=== PATIENT | male | born 1955 | race Caucasian/White ===

== ENCOUNTER 2019-02-06 14:15 | Inpatient (IN) | payer OTHER ==
[2019-02-06 15:31] VITALS: BMI 21.6
--- NOTE | 2019-02-06 16:59 | HP ---
COWS - Scale Resting Pulse: 1= ID [id number] Sweatin=Flushed/Facial Moisture (pt states feels like he is in withdrawal and needs detox) Restless Observation: 3= Extraneous Movement Pupil Size: 0= Normal to Room Light Bone or Joint Aches: 2= Severe Diffuse Aches Runny Nose/ Eye Tearin= Runny Nose/Eyes GI Upset > 30mins: 3= Vomiting/Diarrhea Tremor Observation: 1= Tremor [place], Not Seen Yawning Observation: 0= None Anxiety or Irritability: 2=Irritable/Anxious Goose Flesh Skin: 0=Smooth Skin COWS Score: 16 CIWA Score - Admission Criteria [facility]ASAS Guidelines: Admission for Medically Managed Detox: Requires at least one of the followin. CIWA greater than 12 2. Seizures within the past 24 hours 3. Delirium tremens within the past 24 hours 4. Hallucinations within the past 24 hours 5. Acute intervention needed for co occurring medical disorder 6. Acute intervention needed for co occurring psychiatric disorder 7. Severe withdrawal that cannot be handled at a lower level of care (continued vomiting, continued diarrhea, abnormal vital signs) requiring intravenous medication and/or fluids 8. Admission [facility] Chief Complaint: heroin detox 64 yo with a long h/o of opioid use disorder since age 14, pt was hospitalized for 5 days (discharged today) with a diagnosis of respiratory arrest and small bowel obstruction. Pt states he was exposed to cats (to which he is allergic) and because he did not have his asthma pump he developed breathing problems. He had had also used heroin- 2 bags. He was in respiratory arrest when the paramedics found him- he was given 3 rounds of narcan and was taken to [facility] near [place], [place]. He left hospital this morning and came here for detox. Pt states he feels like he is still with withdrawal Sx-high COWs score. States he sniffed heroin prior to coming here. Pt was discharged with levaquin, prednisone, albuterol, spiriva, metoprolol. Utox pos for Bzo, opiates, MTD and porfirio DUR- neg for recent controlled substances Allergies/Adverse Reactions: Allergies Allergy/AdvReac Type Severity Reaction Status Date / Time cat Allergy Severe Itching Uncoded 02/06/19 15:08 Exam Limitations: No Limitations - Ebola screening Have you traveled outside of the country in the last 21 days: No (N) Have you had contact with anyone from an Ebola affected area: No Do you have a fever: No Patient History - Patient Medical History Hx Asthma: Yes Hx Gastrointestinal Disorders: Yes (multiple surgeries) - Patient Surgical History Hx Abdominal Surgery: Yes (esophageal rupture, hole in intestines, hernia) - PPD History PPD to be Administered?: Yes - Smoking Cessation Smoking history: Current every day smoker Have you smoked in the past 12 months: Yes Aproximately how many cigarettes per day: 20 Initiated information on smoking cessation: Yes 'Breaking Loose' booklet given: 02/06/19 - Substance & Tx. History Hx Alcohol Use: No Substance Use Type: Cocaine, Heroin Hx Substance Use Treatment: Yes - Substances abused Heroin Substance route: Inhalation Frequency: Daily Amount used: 5 bags Age of first use: 14 Date of last use: 02/06/19 Cocaine Substance route: Smoking Frequency: 3-6 times per week Amount used: $20 Age of first use: 22 Date of last use: 02/03/19 Family Disease History - Family Disease History Family History: Unremarkable Admission Physical Exam [facility] - Vital Signs Vital Signs: Vital Signs - 24 hr 02/06/19 15:07 Temperature 98.1 F Pulse Rate 69 Respiratory 18 Rate Blood Pressure 98/66 - Physical General Appearance: Yes: Cachetic, Thin, Irritable HEENTM: Yes: Other (thrush on hard palate) Respiratory: Yes: Within Normal Limits, Lungs Clear Neck: Yes: Within Normal Limits Cardiology: Yes: Within Normal Limits, S1, S2 Abdominal: Yes: Within Normal Limits, Surgical Scar Back: Yes: Within Normal Limits Musculoskeletal: Yes: Within Normal Limits, Muscle weakness Extremities: Yes: Other (thin arms and legs) Neurological: Yes: Within Normal Limits, Fully Oriented, Alert Integumentary: Yes: Within Normal Limits Lymphatic: Yes: Within Normal Limits - Diagnostic (1) Opioid use disorder Current Visit: Yes Status: Acute (2) H/O small bowel obstruction Current Visit: Yes Status: Acute (3) H/O drug overdose Current Visit: Yes Status: Acute (4) Thrush Current Visit: Yes Status: Acute (5) Cocaine use disorder Current Visit: Yes Status: Acute Inpatient Rehab Admission - Rehab Decision to Admit Inpatient rehab admission?: No
[2019-02-06] MEDS ORDERED: MAGNESIUM HYDROX 2400MG/30ML ORAL SUSPENSION 30 ML CUP PO PRN (17:12)
[2019-02-06] MEDS ORDERED: BISMUTH SUBSALICYLATE 524 MG/30 ML UD PO PRN (17:12)
[2019-02-06] MEDS ORDERED: clonazePAM 0.5 MG TABLET PO PRN (17:12)
[2019-02-06] MEDS ORDERED: ACETAMINOPHEN 325 MG TABLET (FP) PO PRN ×2 (17:12)
[2019-02-06] MEDS ORDERED: cloNIDine HCL 0.1 MG TABLET PO PRN (17:12)
[2019-02-06] MEDS ORDERED: IBUPROFEN 400 MG TABLET (FP) PO PRN (17:12)
[2019-02-06] MEDS ORDERED: MAGNESIUM CITRATE 300 ML BOTTLE PO PRN (17:12)
[2019-02-06] MEDS ORDERED: MELATONIN 5 MG TABLETS PO PRN (17:12)
[2019-02-06] MEDS ORDERED: hydrOXYzine PAMOATE 25 MG CAPSULE (FP) PO PRN (17:12)
[2019-02-06] MEDS ORDERED: METHOCARBAMOL 500 MG TABLET PO PRN (17:12)
[2019-02-06] MEDS ORDERED: MENTHOL/PHENOL 1 EACH UD MM PRN (17:12)
[2019-02-06] MEDS ORDERED: MAG HYDROX/AL HYDROX/SIMETH 30 ML UNIT-DOSE CUP PO PRN (17:12)
[2019-02-06] MEDS ORDERED: ALBUTEROL SO4 8 GM HFA INHALER IH PRN (17:26)
[2019-02-06] MEDS ORDERED: METHADONE HCL 10 MG TABLET (FOR DETOX USE ONLY) PO ONE ×2 (18:00→23:00)
[2019-02-06] MEDS ORDERED: predniSONE 20 MG TABLET (UD) PO ONE (18:00)
[2019-02-06] MEDS: TIOTROPIUM BROMIDE 2.5 MCG (SPIRIVA) RESPIMAT INHALER IH SCH (19:11)
[2019-02-06] MEDS ORDERED: THIAMINE HCL 100 MG TABLET (FP) PO SCH (22:00)
[2019-02-06] MEDS: CLOTRIMAZOLE 10 MG TROCHE (FP) PO SCH (22:01)
[2019-02-07] MEDS: CLOTRIMAZOLE 10 MG TROCHE (FP) PO SCH ×2 (05:25→10:03)
[2019-02-07 09:38] LABS: HEMATOCRIT 44.8 % (35.4-49); HEMOGLOBIN 14.8 GM/dL (11.7-16.9); MCH 28.8 pg (25.7-33.7); MCHC 33.1 g/dl (32.0-35.9); MEAN PLT VOLUME 7.6 fl (7.5-11.1); PLATELET COUNT 198 K/MM3 (134-434); RBC 5.15 M/mm3 (4.00-5.60); RDW 14.5 % (11.9-15.9); WHITE BLOOD COUNT 9.9 K/mm3 (4.0-10.0)
[2019-02-07 09:42] VITALS: BP 108/74; PULSE 70; TEMP 96.6
[2019-02-07 09:57] LABS: ALBUMIN 3.3 g/dl (3.4-5.0); BILIRUBIN,TOTAL 0.4 mg/dL (0.2-1); CALCIUM 9.1 mg/dL (8.5-10.1); CREATININE 1.1 mg/dL (0.55-1.3); POTASSIUM 4.1 mmol/L (3.5-5.1)
[2019-02-07] MEDS ORDERED: PRENATAL VITAMINS W/ FOLIC ACID TABLET (FP) PO SCH (10:00)
[2019-02-07] MEDS ORDERED: PANTOPRAZOLE 40 MG TABLET (FP) PO SCH (10:00)
[2019-02-07] MEDS ORDERED: METHADONE HCL 10 MG TABLET (FOR DETOX USE ONLY) PO ONE (10:00)
[2019-02-07] MEDS: TIOTROPIUM BROMIDE 2.5 MCG (SPIRIVA) RESPIMAT INHALER IH SCH (10:05)
--- NOTE | 2019-02-07 10:21 | PN ---
[facility] COWS - Scale Resting Pulse: 0= ID 80 or Below Sweatin= Chills/Flushing Restless Observation: 0= Sits Still Pupil Size: 1= Pupils >than Normal Bone or Joint Aches: 2= Severe Diffuse Aches Runny Nose/ Eye Tearin= Runny Nose/Eyes GI Upset > 30mins: 2= Nausea/Diarrhea Tremor Observation of Outstretched Hands: 2= Slight Tremor Visible Yawning Observation: 1= 1-2x During Session Anxiety or Irritability: 2=Irritable/Anxious Goose Flesh Skin: 0=Smooth Skin COWS Score: 13 [facility] Progress Note (SOAP) Subjective: chronic asthma recent hospitalized x "days" discharged with prednison Objective: 02/07/19 10:23 Vital Signs Temperature 96.6 F L 02/07/19 09:38 Pulse Rate 70 02/07/19 09:38 Respiratory Rate 18 02/07/19 09:38 Blood Pressure 108/74 02/07/19 09:38 O2 Sat by Pulse Oximetry (%) Laboratory Last Values WBC 9.9 K/mm3 (4.0-10.0) 02/07/19 07:00 RBC 5.15 M/mm3 (4.00-5.60) 02/07/19 07:00 Hgb 14.8 GM/dL (11.7-16.9) 02/07/19 07:00 Hct 44.8 % (35.4-49) 02/07/19 07:00 MCV 87.0 fl (80-96) 02/07/19 07:00 MCH 28.8 pg (25.7-33.7) 02/07/19 07:00 MCHC 33.1 g/dl (32.0-35.9) 02/07/19 07:00 RDW 14.5 % (11.9-15.9) 02/07/19 07:00 Plt Count 198 K/MM3 (134-434) 02/07/19 07:00 MPV 7.6 fl (7.5-11.1) 02/07/19 07:00 Sodium 132 mmol/L (136-145) L 02/07/19 07:00 Potassium 4.1 mmol/L (3.5-5.1) 02/07/19 07:00 Chloride 97 mmol/L (98-107) L 02/07/19 07:00 Carbon Dioxide 29 mmol/L (21-32) 02/07/19 07:00 Anion Gap 6 MMOL/L (8-16) L 02/07/19 07:00 BUN 31 mg/dL (7-18) H 02/07/19 07:00 Creatinine 1.1 mg/dL (0.55-1.3) 02/07/19 07:00 Est GFR (CKD-EPI)AfAm 82.37 02/07/19 07:00 Est GFR (CKD-EPI)NonAf 71.07 02/07/19 07:00 Random Glucose 73 mg/dL (74-106) L 02/07/19 07:00 Calcium 9.1 mg/dL (8.5-10.1) 02/07/19 07:00 Total Bilirubin 0.4 mg/dL (0.2-1) 02/07/19 07:00 AST 14 U/L (15-37) L 02/07/19 07:00 ALT 24 U/L (13-61) 02/07/19 07:00 Alkaline Phosphatase 65 U/L (45-117) 02/07/19 07:00 Total Protein 8.0 g/dl (6.4-8.2) 02/07/19 07:00 Albumin 3.3 g/dl (3.4-5.0) L 02/07/19 07:00 lab noted bun elevation repeat bun increase oral fluid 02/07/19 10:25 Assessment: 02/07/19 10:24 opiate withdrawal sx Plan: continue detox repeat bun oral hydration
[2019-02-07] MEDS ORDERED: MINERAL OIL/PETROLAT/WATER TOPICAL CREAM 113 GM JAR TP SCH (10:30)
--- NOTE | 2019-02-07 14:58 | DS ---
[facility] Detox Discharge Summary Admission Date: 02/06/19 Discharge Date: 02/07/19 - History Present History: Opioid Dependence Additional Comments: 64 YEARS OLD MALE ADMITTED ON 02/06/19 FOR OPIATE WITHDRAWAL STABILIZATION INSISTS TO LEAVE THE UNIT "SOME THINGS TO DO" PATIENT IS ALERT NO ACUTE DISTRESS DENIES SUICIDAL IDEATION Pertinent Past History: BRING IN MEDICATION LIST AND LAB REPORT TO [facility] APPOINTMENT PATIENT WAS IN THE HOSP[facility] FOR P[facility]UM[facility]IA DISCHARGED WITH PREDNISON PATIENT AGREES TO UTILIZE [facility] FOR CARDIAC AND PULMONARY ISSUES - Physical Exam Results Vital Signs: Vital Signs Temperature 96.6 F L 02/07/19 09:38 Pulse Rate 70 02/07/19 09:38 Respiratory Rate 18 02/07/19 09:38 Blood Pressure 108/74 02/07/19 09:38 O2 Sat by Pulse Oximetry (%) Pertinent Admission Physical Exam Findings: OPIATE WITHDRAWAL SX Laboratory Last Values WBC 9.9 K/mm3 (4.0-10.0) 02/07/19 07:00 RBC 5.15 M/mm3 (4.00-5.60) 02/07/19 07:00 Hgb 14.8 GM/dL (11.7-16.9) 02/07/19 07:00 Hct 44.8 % (35.4-49) 02/07/19 07:00 MCV 87.0 fl (80-96) 02/07/19 07:00 MCH 28.8 pg (25.7-33.7) 02/07/19 07:00 MCHC 33.1 g/dl (32.0-35.9) 02/07/19 07:00 RDW 14.5 % (11.9-15.9) 02/07/19 07:00 Plt Count 198 K/MM3 (134-434) 02/07/19 07:00 MPV 7.6 fl (7.5-11.1) 02/07/19 07:00 Sodium 132 mmol/L (136-145) L 02/07/19 07:00 Potassium 4.1 mmol/L (3.5-5.1) 02/07/19 07:00 Chloride 97 mmol/L (98-107) L 02/07/19 07:00 Carbon Dioxide 29 mmol/L (21-32) 02/07/19 07:00 Anion Gap 6 MMOL/L (8-16) L 02/07/19 07:00 BUN 31 mg/dL (7-18) H 02/07/19 07:00 Creatinine 1.1 mg/dL (0.55-1.3) 02/07/19 07:00 Est GFR (CKD-EPI)AfAm 82.37 02/07/19 07:00 Est GFR (CKD-EPI)NonAf 71.07 02/07/19 07:00 Random Glucose 73 mg/dL (74-106) L 02/07/19 07:00 Calcium 9.1 mg/dL (8.5-10.1) 02/07/19 07:00 Total Bilirubin 0.4 mg/dL (0.2-1) 02/07/19 07:00 AST 14 U/L (15-37) L 02/07/19 07:00 ALT 24 U/L (13-61) 02/07/19 07:00 Alkaline Phosphatase 65 U/L (45-117) 02/07/19 07:00 Total Protein 8.0 g/dl (6.4-8.2) 02/07/19 07:00 Albumin 3.3 g/dl (3.4-5.0) L 02/07/19 07:00 RPR Titer Nonreactive (NONREACTIVE) 02/07/19 07:00 LAB NOTED - Treatment Hospital Course: Detox Protocol Followed, Responded well Patient has Accepted a Rehab Referral to: [facility] - Medication Discharge Medications: Ambulatory Orders Albuterol Sulfate Inhaler - [Ventolin Hfa Inhaler -] 2 inh PO Q4H PRN 02/06/19 Ergocalciferol (Vitamin D2) [Vitamin D2] 50,000 units PO WEEKLY 02/06/19 Levofloxacin [Levaquin] 500 mg PO DAILY 02/06/19 Metoprolol Succinate 50 mg PO DAILY 02/06/19 Omeprazole 40 mg PO DAILY 02/06/19 Tiotropium [place] [Spiriva Respimat] 4 gm IH DAILY 02/06/19 predniSONE [Deltasone -] 40 mg PO DAILY 02/06/19 - Diagnosis (1) Hypertension Status: Chronic Qualifiers: Hypertension type: essential hypertension Qualified Code(s): I10 - Essential (primary) hypertension (2) Asthma Status: Chronic Qualifiers: Asthma severity: mild Asthma persistence: intermittent Asthma complication type: with status asthmaticus Qualified Code(s): J45.22 - Mild intermittent asthma with status asthmaticus (3) Opioid use disorder Status: Acute - AMA Did Patient Leave Against Medical Advice: Yes
[2019-02-08] MEDS ORDERED: METHADONE HCL 10 MG TABLET (FOR DETOX USE ONLY) PO ONE (10:00)
[2019-02-08] MEDS ORDERED: predniSONE 10 MG TABLET (UD) PO SCH (10:00)
[2019-02-09] MEDS ORDERED: METHADONE HCL 10 MG TABLET (FOR DETOX USE ONLY) PO ONE (10:00)
[2019-02-10] MEDS ORDERED: METHADONE HCL 5 MG TABLET (FOR DETOX USE ONLY) PO ONE (06:00)
[2019-02-10] MEDS ORDERED: predniSONE 20 MG TABLET (UD) PO SCH (10:00)
[2019-02-12] MEDS ORDERED: predniSONE 5 MG TABLET (UD) PO SCH (10:00)
== END 2019-02-07 11:40 | disposition left against medical advice (07) | DRG 770 ==
LOC: YASAS 14:15 → Y3N 17:22
PROVIDERS: ADMIT Surgery; ATTEND Surgery
PROC: HZ2ZZZZ Detoxification Services for Substance Abuse Treatment (ICD-10-PCS; principal; 2019-02-06)
DX: F11.23 Opioid dependence with withdrawal (principal); F14.20 Cocaine dependence, uncomplicated; F17.210 Nicotine dependence, cigarettes, uncomplicated; I10 Essential (primary) hypertension; J45.22 Mild intermittent asthma with status asthmaticus; B37.0 Candidal stomatitis
CPT/HCPCS: 36415; 80053; 85027; 86593